=== PATIENT | male | born 1950 ===

== ENCOUNTER 2020-11-24 15:58 | Observation (INO) ==
[2020-11-24 17:01] LABS: ABS Basophils 0.1 10^3/ul (0-0.2); ABS Eosinophils 0.2 10^3/ul (0-0.6); ABS Monocytes 0.8 10^3/ul (0-0.8); ABS Neutrophils 3.6 10^3/ul (1.5-7.7); Eosinophil % 3.1 %; Hematocrit 44 % (42-52); Hemoglobin 15.1 g/dL (14.0-18.0); Lymphocyte % 29.5 %; Mean Corpuscular HGB Conc 35 g/dL (31-36); Mean Corpuscular Hemoglobin 34 pg (27-31); Mean Corpuscular Volume 97 fL (80-94); Mean Platelet Volume 9.3 fL (7.4-10.4); Platelet Count 228 10^3/uL (150-450); Red Blood Count 4.51 10^6 /uL (4.18-5.48); Red Cell Distribution Width 13 % (10-15); White Blood Count 6.6 10^3/uL (3.5-10.8)
[2020-11-24 17:06] LABS: INR 1.05 (0.82-1.09)
[2020-11-24 17:17] LABS: Troponin I 0.01 ng/mL (<0.03)
[2020-11-24 17:19] LABS: Albumin 4.3 g/dL (3.2-5.2); Albumin/Globulin Ratio 1.4 (1-3); BUN/Creatinine Ratio 13.7 (8-20); Calcium 9.9 mg/dL (8.6-10.3); EGFR African American 94.8 (>60); EGFR Non-African American 78.4 (>60); Potassium 3.9 mmol/L (3.5-5.0); Total Protein 7.3 g/dL (6.4-8.9)
[2020-11-24] MEDS ORDERED: Aspirin EC 81 mg TAB.EC (enteric coated) PO ONE (17:31)
[2020-11-24 20:24] LABS: HDL Cholesterol 43.6 mg/dL
[2020-11-24 20:37] LABS: TSH Ultra Thyroid Stim Horm 1.48 mcIU/mL (0.34-5.60)
[2020-11-24] MEDS ORDERED: Enoxaparin 40 MG/0.4 ML SYR SUBCUT SCH (21:00)
[2020-11-25 05:06] LABS: ABS Basophils 0.1 10^3/ul (0-0.2); ABS Eosinophils 0.4 10^3/ul (0-0.6); ABS Lymphocytes 2.6 10^3/ul (1.0-4.8); ABS Monocytes 0.8 10^3/ul (0-0.8); ABS Neutrophils 3.2 10^3/ul (1.5-7.7); Eosinophil % 5.5 %; Hematocrit 41 % (42-52); Hemoglobin 14.2 g/dL (14.0-18.0); Lymphocyte % 36.9 %; Mean Corpuscular HGB Conc 34 g/dL (31-36); Mean Corpuscular Hemoglobin 33 pg (27-31); Mean Corpuscular Volume 97 fL (80-94); Mean Platelet Volume 9.3 fL (7.4-10.4); Platelet Count 210 10^3/uL (150-450); Red Blood Count 4.27 10^6 /uL (4.18-5.48); Red Cell Distribution Width 13 % (10-15)
[2020-11-25 05:22] LABS: BUN/Creatinine Ratio 13.6 (8-20); Calcium 9.2 mg/dL (8.6-10.3); EGFR African American 103.6 (>60); EGFR Non-African American 85.6 (>60); Potassium 4.1 mmol/L (3.5-5.0)
[2020-11-25] MEDS ORDERED: Aspirin EC 81 mg TAB.EC (enteric coated) PO SCH (09:00)
[2020-11-25] MEDS ORDERED: Iohexol 300 (CONTRAST) 10 ML SDV IV ONE (18:53)
[2020-11-25 19:50] VITALS: BP 147/95
[2020-11-26] MEDS ORDERED: Pneumococcal Vac 23-Polyvalent IM ONE (09:00)
== END 2020-11-25 20:00 | disposition home or self-care (01) ==
LOC: ED 15:58 → MEDTELE 19:52 → MERGE 19:52 → INTOOBSV 19:52 → MEDTELE 21:39
PROVIDERS: ADMIT Internal Medicine; ATTEND Student in an Organized Health Care Education/Training Program